=== PATIENT | female | born 1950 | race Hispanic/Latino ===

== ENCOUNTER → 2018-01-01 | Outpatient (CLI) | payer OTHER ==
[~2018-01-01] MED LIST: FENTANYL CITRATE/PF 100MCG/2 ML INJ ONE; GELATIN SPONGE 12-7MM ONE; MIDAZOLAM HCL 2 MG/2 ML VIAL ONE
[2018-01-01 09:19] LABS: INR 1.13; PROTHROMBIN TIME 13.6 seconds (11.9-14.5)
[2018-01-01 09:20] LABS: PARTIAL THROMBOPLASTIN TIME 33.2 seconds (23.8-35.5)
--- NOTE | 2018-01-01 14:21 | Diagnostic Imaging Report ---
PROCEDURE:ULTRASOUND GUIDANCE FOR PROCEDURE INDICATIONS:Elevated liver enzymes. FINDINGS: PROCEDURE:ULTRASOUND GUIDED RANDOM LIVER BIOPSY MEDICATION: 1% lidocaine for local anesthesia. 50 mcg of Fentanyl and 1 mg of Versed for conscious sedation. EBL: Less than 5 cc SPECIMENS: Two 18 gauge 2 cm long core biopsies FINDINGS:Informed consent was obtained. Ultrasound was used for guidance to perform a random liver biopsy in the right lobe of the liver. The overlying skin was prepped and draped in the usual sterile fashion. Lidocaine 1% was infiltrated into the subcutaneous tissues for local anesthesia. A 17 gauge guiding needle was placed into the right lobe of the liver with ultrasound guidance. Two core biopsies were performed. Gelfoam was then instilled into the guiding needle prior to removal to aid in hemostasis. CONCLUSION:Successful random liver biopsy in the right lobe of the liver. Joseph Brandt D.O. Dictated by: Joseph Brandt D.O. on 01/01/2018 at 14:22 Electronically approved by: Joseph Brandt D.O. on 01/01/2018 at 14:22
--- NOTE | 2018-01-01 14:24 | Diagnostic Imaging Report ---
PROCEDURE:IR BIOPSY LIVER INDICATIONS:Elevated liver enzymes DESCRIPTION:After obtaining informed consent, an ultrasound guided biopsy was performed in the usual sterile manner. BIOPSY NEEDLE:18 gauge 2 cm throw biopsy gun SPECIMEN TYPE, #, LOCATION:Right lobe of the liver MEDICATION:1% Xylocaine and 50 mcg of Fentanyl with 1 mg of Versed COMPLICATIONS:None. CONCLUSION:Uneventful ultrasound guided biopsy. The patient was instructed to obtain follow up care and biopsy results from the referring physician. Joseph Brandt D.O. Dictated by: Joseph Brandt D.O. on 01/01/2018 at 14:25 Electronically approved by: Joseph Brandt D.O. on 01/01/2018 at 14:25
== END ==
LOC: US 08:01
PROVIDERS: ATTEND Internal Medicine Gastroenterology
DX: K74.3 Primary biliary cirrhosis (principal); E66.3 Overweight; Z71.3 Dietary counseling and surveillance
CPT/HCPCS: 36415; 47000; 76942; 85049; 85610; 85730; 88307; J2250